=== PATIENT | female | born 1950 | race African-American/Black ===

== ENCOUNTER 2020-12-24 22:33 | Emergency (ER) | payer MEDICARE ==
[~2020-12-24] VITALS: Ht 152.4 cm; Wt 59.0 kg
[2020-12-24 22:35] VITALS: BP 142/62
--- NOTE | 2020-12-24 23:09 | NUR ---
PT PRESENTS TO ER WITH FAMILY, PT HAS DENTURE STUCK ON ONE OF HER FALSE TEETH, PT WAS IN A HURRY TO TAKE HER DENTURES OFF AND IN THE PROCESS SHE LIFTED ONE SIDE AND NO THE OTHER CAUSING ONE SIDE TO GET CAUGHT AND STUCK ON ONE OF HER TEETH
[2020-12-24] MEDS ORDERED: LIDOCAINE-MPF 1%, 5ML ONE (23:11)
[2020-12-24] MEDS ORDERED: LIDOCAINE 1%, 10ML INFIL ONE (23:30)
== END 2020-12-25 00:12 | disposition home or self-care (01) ==
LOC: ED 23:50
DX: T18.0XXA Foreign body in mouth, initial encounter (principal); I10 Essential (primary) hypertension; X58.XXXA Exposure to other specified factors, initial encounter; Y93.9 Activity, unspecified; Y92.89 Other specified places as the place of occurrence of the external cause; Y99.8 Other external cause status
CPT/HCPCS: 41899; 99284